=== PATIENT | male | born 1940 ===

== ENCOUNTER 2017-02-18 13:28 | Emergency (ER) | payer OTHER ==
[~2017-02-18] VITALS: Ht 165.1 cm; Wt 92.5 kg
[2017-02-18] MEDS ORDERED: NIFE60TA3 (14:00)
== END 2017-02-18 16:11 | disposition home or self-care (01) ==
LOC: ER 13:28
DX: B34.9 Viral infection, unspecified (principal); J11.1 Influenza due to unidentified influenza virus with other respiratory manifestations

== ENCOUNTER 2017-03-22 13:24 | Emergency (ER) | payer OTHER ==
[~2017-03-22] VITALS: Ht 165.1 cm; Wt 90.7 kg
[~2017-03-22 13:24] MED LIST: NIFE60TA3
[2017-03-22] MEDS ORDERED: CLONAZEPAM0.5 MG PO (14:23)
[2017-03-22] MEDS ORDERED: VENLAFAXINE H37.5 MG PO (14:24)
== END 2017-03-23 15:24 | disposition home or self-care (01) ==
LOC: ER 13:24
DX: K52.9 Noninfective gastroenteritis and colitis, unspecified (principal); E86.0 Dehydration